=== PATIENT | male | born 1965 | race Caucasian/White ===

== ENCOUNTER 2019-05-19 09:45 | Outpatient (CLI) | payer BC, SELFPAY ==
[2019-05-19 10:14] LABS: Basophils Absolute Auto 0.1 K/mm3 (0.0-0.1); Basophils Percent Auto 1.1 % (0.2-1.2); Eosinophils Absolute Auto 0.1 K/mm3 (0-0.3); Eosinophils Percent Auto 1.6 % (0-4.4); Hematocrit 46.2 % (42.0-52.0); Hemoglobin 15.3 g/dL (14.0-18.0); Immature Granulocyte Absolute 0.08 K/mm3 (0.00-0.031); Lymphocytes Absolute Auto 2.06 K/mm3 (0.9-3.2); Lymphocytes Percent Auto 25.1 % (18.3-44.2); Mean Corpuscular HGB Conc 33.1 g/dl (32-36); Mean Corpuscular Volume 90.6 fl (80-100); Mean Platelet Volume 9.9 fl (7.4-10.4); Monocytes Absolute Auto 0.6 K/mm3 (0.1-0.6); Monocytes Percent Auto 7.3 % (2.6-8.5); Neutrophils Absolute Auto 5.3 K/mm3 (1.3-6.7); Neutrophils Percent Auto 63.9 % (45.5-73.1); Platelet Count Result 265 k/mm3 (150-375); Red Cell Distribution Width 12.7 % (11.5-14.5); White Blood Count 8.2 K/mm3 (4.5-10.0)
[2019-05-19 10:28] LABS: Alanine Aminotransferase 16 U/L (4-50); Albumin Level 4.4 g/dL (3.5-5.1); Alkaline Phosphatase 52 U/L (38-126); Aspartate Amino Transferase 18 U/L (17-59); Bilirubin,Total 0.6 mg/dL (0.2-1.3); Blood Urea Nitrogen 13 mg/dL (9-20); Calcium 9.1 mg/dL (8.4-10.2); Carbon Dioxide 27 mmol/L (22-30); Chloride 100 mmol/L (98-107); Cholesterol 207 mg/dL (0-200); Estimated Glomerular Filt Rate > 60; Glucose 104 mg/dL (75-110); HDL Direct 54 mg/dL; Potassium 4.2 mmol/L (3.4-5.0); Sodium 139 mmol/L (137-145); Triglycerides 122 mg/dL (<150)
[2019-05-19 10:39] LABS: LDL Cholesterol Direct 135 mg/dL
[2019-05-19 10:56] LABS: Thyroid Stimulating Hormone 0.093 uIU/mL (0.465-4.680)
[2019-05-19 13:40] LABS: Prostate Specific Antigen 14.5 ng/mL (< OR = 4.0)
== END 2019-05-19 09:46 | disposition home or self-care (01) ==
PROVIDERS: PCP Family Medicine; Visit Provider Family Medicine
DX: Z00.00 Encounter for general adult medical examination without abnormal findings (principal); Z12.5 Encounter for screening for malignant neoplasm of prostate; E78.5 Hyperlipidemia, unspecified; I10 Essential (primary) hypertension
CPT/HCPCS: 36415; 80053; 80061; 84153; 84443; 85025

== ENCOUNTER 2019-08-03 07:47 | Outpatient (CLI) | payer BC, SELFPAY ==
--- NOTE | ~2019-08-03 | CT_ITS ---
EXAMINATION: CT abdomen pelvis w con DATE: 08/03/2019 08:48 INDICATION: Prostate cancer TECHNIQUE: Computed tomography (CT) of the abdomen and pelvis was performed with 100 cc Omnipaque 350 intravenous contrast. Automated exposure control and iterative reconstruction technique were employe d. Exam dose: 388.56 mGy-cm total exam DLP. COMPARISON: None. FINDINGS: The lung bases are clear. Normal heart size. No pericardial or pleural effusion. The liver, gallbladder, bile ducts, spleen, pancreas and pancreatic duct are unremarkable. Normal mor phology of the adrenal glands. No suspicious renal mass lesion, urinary tract calculus or hydroureter onephrosis. Diverticulosis of the left colon. No CT evidence of diverticulitis. No CT evidence of diverticulitis. No bowel obstruction or intraperitoneal free air. There is patchy mild fat stranding within the mesentery and some nonspecific shotty mesenteric lymph nodes which may represent mesenteric adenitis. Normal caliber and mild atherosclerotic calcification of the abdominal aorta. Moderate prostate enlargement and calcifications. Small fat-containing left inguinal hernia. Degenerative changes of the lower thoracic and to a lesser extent lumbar spine. No suspicious osteobl astic or osteolytic lesions are identified. IMPRESSION: Moderate prostate enlargement and calcifications; no evidence of prostate metastasis Diverticulosis of the left colon Possible mesenteric adenitis Reviewed, dictated and finalized at [facility]. Reviewed, dictated and finalized at location A. IMPRESSION: Moderate prostate enlargement and calcifications; no evidence of p rostate metastasis Diverticulosis of the left colon Possible mesenteric adenitis
--- NOTE | ~2019-08-03 | NM_ITS ---
EXAMINATION: NM bone scan whole body EXAM DATE: 08/03/2019 12:05 INDICATION: Prostate cancer. TECHNIQUE: Bone scan was performed after injection of 26.8 mCi technetium 99 HDP and planar whole bod y images were obtained. COMPARISON: CT scan 08/03/2019 FINDINGS: There are no focal regions of increased uptake, or photopenic regions. There is mild upper thoracic dextroscoliosis, lower thoracic levoscoliosis, lumbar dextroscoliosis. Physiologic renal ac tivity. IMPRESSION: 1. No evidence of osseous metastatic disease. 2. Mild thoracolumbar scoliosis. Reviewed, dictated and finalized at location A.
[2019-08-03 08:37] LABS: Estimated Glomerular Filt Rate > 60
== END 2019-08-03 07:48 | disposition home or self-care (01) ==
PROVIDERS: PCP Family Medicine; Visit Provider Urology
DX: C61 Malignant neoplasm of prostate (principal); K57.30 Diverticulosis of large intestine without perforation or abscess without bleeding; M41.85 Other forms of scoliosis, thoracolumbar region
CPT/HCPCS: 36415; 74177; 78306; A9561; Q9967

== ENCOUNTER 2019-08-27 07:51 | Outpatient (CLI) | payer BC, SELFPAY ==
--- NOTE | 2019-08-27 08:45 | ECG_ITS ---
Measurements Intervals [place] Rate: 75 P: 45 PA: 158 QRS: 5 QRSD: 71 T: 29 QT: 348 QTc: 390 Interpretive Statements SINUS RHYTHM EARLY PRECORDIAL R/S TRANSITION BASELINE ARTIFACT- I, III, AVL, AVF BORDERLINE ECG Electronically Signed On 08-27-2019 9:01:12 CDT by Panda Herrera D.O.
[2019-08-27 09:09] LABS: Basophils Absolute Auto 0.1 K/mm3 (0.0-0.1); Basophils Percent Auto 0.8 % (0.2-1.2); Eosinophils Absolute Auto 0.1 K/mm3 (0-0.3); Eosinophils Percent Auto 1.3 % (0-4.4); Hematocrit 45.7 % (42.0-52.0); Hemoglobin 15.8 g/dL (14.0-18.0); Immature Granulocyte Absolute 0.06 K/mm3 (0.00-0.031); Immature Granulocyte Percent A 0.7 % (0-0.5); Lymphocytes Absolute Auto 2.46 K/mm3 (0.9-3.2); Lymphocytes Percent Auto 26.8 % (18.3-44.2); Mean Corpuscular HGB Conc 34.6 g/dl (32-36); Mean Corpuscular Hemoglobin 30.6 pg (26-34); Mean Corpuscular Volume 88.4 fl (80-100); Mean Platelet Volume 9.7 fl (7.4-10.4); Monocytes Absolute Auto 0.8 K/mm3 (0.1-0.6); Monocytes Percent Auto 8.4 % (2.6-8.5); Neutrophils Absolute Auto 5.7 K/mm3 (1.3-6.7); Platelet Count Result 269 k/mm3 (150-375); Red Blood Count 5.17 M/mm3 (4.6-6.20); Red Cell Distribution Width 12.2 % (11.5-14.5); White Blood Count 9.2 K/mm3 (4.5-10.0)
[2019-08-27 09:18] LABS: INR 1.1; Prothrombin Time 13.5 Seconds (11.1-14.7)
[2019-08-27 09:19] LABS: Partial Thromboplastin Time 27.9 SECONDS (22.3-36.8)
[2019-08-27 09:23] LABS: Alanine Aminotransferase 18 U/L (4-50); Albumin Level 4.8 g/dL (3.5-5.1); Alkaline Phosphatase 64 U/L (38-126); Aspartate Amino Transferase 21 U/L (17-59); Bilirubin,Total 0.7 mg/dL (0.2-1.3); Blood Urea Nitrogen 11 mg/dL (9-20); Calcium 9.4 mg/dL (8.4-10.2); Carbon Dioxide 27 mmol/L (22-30); Chloride 102 mmol/L (98-107); Estimated Glomerular Filt Rate > 60; Glucose 96 mg/dL (75-110); Potassium 4.1 mmol/L (3.4-5.0); Sodium 137 mmol/L (137-145)
== END 2019-08-27 07:52 | disposition home or self-care (01) ==
LOC: ANHSURGERY 07:54
PROVIDERS: PCP Family Medicine; Visit Provider Urology
DX: Z01.818 Encounter for other preprocedural examination (principal); C61 Malignant neoplasm of prostate; I10 Essential (primary) hypertension
CPT/HCPCS: 36415; 80053; 85025; 85610; 85730; 86850; 86900; 86901; 87086; 93005

== ENCOUNTER 2019-09-05 00:09 | Outpatient (CLI) | payer BC, SELFPAY ==
[2019-09-05 18:00] LABS: SARS-CoV-2 RNA PCR Negative
== END 2019-09-05 00:10 | disposition home or self-care (01) ==
LOC: ANHCOVIDDT 00:09
PROVIDERS: PCP Family Medicine; Visit Provider Urology
DX: Z01.818 Encounter for other preprocedural examination (principal); Z11.59 Encounter for screening for other viral diseases
CPT/HCPCS: 87635; C9803; U0003

== ENCOUNTER 2019-09-08 00:50 | Day surgery (SDC) | payer BC, SELFPAY ==
[2019-08-27 08:02] VITALS: BMI 24.5
[2019-08-27 08:45] VITALS: BP 130/88; PULSE 83; RESP 18; TEMP 36.9; O2SAT 98
[2019-09-08] VITALS (9 sets, daily range): BP systolic 101–120; BP diastolic 48–79; PULSE 75–100; RESP 13–20; TEMP 36.3–37.2; O2SAT 95–100; BMI 25.4
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
[2019-09-08] MEDS: LACTATED RINGERS 1,000 ML 30 ML IV CONT (06:48)
--- NOTE | 2019-09-08 07:08 | WPDHPUPDATE1 ---
History and Physical Update Update Date/Time: 09/08/19 07:08 History and Physical has been reviewed, including an updated exam of the patient. There are NO changes in the patient's condition. Risks, benefits, and alternatives have been discussed and questions answered. Patient agrees to proceed with procedure. Proceed with robotic assist nerve sparing prostatectomy with possible bilateral pelvic lymph node dissection.
[2019-09-08] MEDS: ceFAZolin 2 GM/D5W 50 ML 2 GM/50 ML BAG IVPB (07:22)
--- NOTE | 2019-09-08 10:34 | SUR.OPER ---
1033-20fr silicone catheter removed by selina Lees. 18 fr 10ml balloon Humphrey catheter inserted by Selina Lees.
--- NOTE | 2019-09-08 11:00 | P.OP_ITS ---
Procedure Note - Detailed Date of procedure: 09/08/19 Pre-op diagnosis: prostate CA Post-op diagnosis: same Procedure performed: Robotic assisted nerve-sparing prostatectomy with right pelvic lymph node dissection Description of procedure: Patient was taken to the operative suite and correctly identified. Once general anesthesia was obtained he was placed in low lying dorsal lithotomy and prepped and draped usual sterile fashion. Eighteen [place] Humphrey with 10 cc in the was placed. All the supraumbilical incision was then made. This carried down to the rectus fascia. Veress needle was inserted and the abdomen was insufflated to 15 mm Hg pressure. We then placed our camera port and under direct vision. We then placed the working ports in the appropriate locations. Patient was then placed in a deep Trendelenburg position and the robot was docked. Patient has significant amount of adhesions from his prior appendectomy and hernia repair. We took extra time 15 minutes to the to an adhesiolysis and free this area up from the pelvis. We then did a posterior approach in the standard fashion. The seminal vesicles were dissected out in their entirety. The vas is were transected. The plane between the prostate and rectum was developed. Then took down the bladder in the standard fashion. Space of Retzius was developed. Puboprostatic ligaments were taken down. Superficial vein was then fulgurated. Anterior bladder neck was then transected to expose the Humphrey catheter. Bladder neck sparing procedure was under taken. Posterior bladder neck was transected. The prior dissected seminal vesicles and vas were seen after opening up [place]. Nerve-sparing was then undertaken in a standard fashion. We took a wider margin on the right side where he was positive. Dorsal venous complex was transected. Urethra was also transected. We then performed a right pelvic lymph node dissection with the boundaries being the external iliac vein obturator nerve a Arthur's ligament and the bifurcation of the vessels proximally. Clips were placed on the lymph node packet. The specimen along with the lymph node packet was then placed in an Endo-Catch bag. [place] was then reapproximated using 0 Vicryl. The bladder neck was then anastomosed to the urethral stump using V lock suture in a running fashion. There was good mucosa to mucosa approximation. Eighteen [place] Humphrey with 10 cc was then placed in bladder. 150 cc of sterile saline was injected and there was no evidence of extravasation. Huang drain was then placed in the 3rd port site. This was secured. All lap counts needle count sponge counts were correct. The robot was undocked. The specimen was brought out through the midline incision. Rectus fascia was closed using 0 Vicryl in a running fashion. Subcuticular stitches were then placed. Patient tolerated procedure well without any complications taken recovery room stable condition. Anesthesia: GETA Surgeon: Sampson Hernandez MD Estimated blood loss (mL): 200 Drains: Yes Packing: No Pathology: yes Complications: No immediate complications Condition: stable Disposition: PACU
--- NOTE | 2019-09-08 12:12 | SUR.PHASEI ---
carmine emptied 25 ml. vivas emptied 45ml bloody urine. more relaxed after dose of pain medicine.
[2019-09-08] MEDS: LACTATED RINGERS 1,000 ML 125 ML IV CONT ×2 (14:40→20:35)
[2019-09-08] MEDS: MORPHINE SULFATE 2 MG/ML INJ 1 MG IV PUSH (14:40)
[2019-09-08] MEDS: HYOSCYAMINE SULFATE 0.125 MG TABLET SUBLINGUAL ×2 (16:56→21:32)
--- NOTE | 2019-09-08 18:38 | ADMGEN ---
This patient, Mike Pitts, was admitted to 3 Med Surg Room 323-01. Patient/family oriented to hospital policies and general routines including ID bracelet, bed and alarms, visiting hours, pain management, procedures, bathroom and other care routines, personal items, smoking policy, room service/diet, and visiting hours. Valuables list has been completed. Information on how to activate the Rapid Response Team has been discussed. Patient/Family are encouraged to report perceived risks to care and to ask questions if they do not understand what they are told or what they should do.
[2019-09-08] MEDS: DOCUSATE SODIUM 100 MG CAPSULE PO (20:29)
[2019-09-09] VITALS: BP 132/73; PULSE 119; RESP 18; TEMP 37; O2SAT 98
[2019-09-09 04:00] VITALS: BP 117/73; PULSE 96; RESP 18; TEMP 36.9; O2SAT 97
[2019-09-09] MEDS: LACTATED RINGERS 1,000 ML 125 ML IV CONT (04:55)
[2019-09-09] MEDS: HYOSCYAMINE SULFATE 0.125 MG TABLET SUBLINGUAL (05:31)
[2019-09-09 05:44] LABS: Hematocrit 37.3 % (42.0-52.0); Hemoglobin 12.4 g/dL (14.0-18.0)
[2019-09-09 05:57] LABS: Blood Urea Nitrogen 9 mg/dL (9-20); Calcium 8.2 mg/dL (8.4-10.2); Carbon Dioxide 28 mmol/L (22-30); Chloride 100 mmol/L (98-107); Estimated CRCL calculation 109 ml/min; Estimated Glomerular Filt Rate > 60; Glucose 101 mg/dL (75-110); Sodium 131 mmol/L (137-145)
[2019-09-09] MEDS: DOCUSATE SODIUM 100 MG CAPSULE PO (08:00)
--- NOTE | 2019-09-09 10:17 | WPDUROPN2 ---
Progress Note: A&P Assessment and Plan (1) Prostate cancer: Code(s): C61 - Malignant neoplasm of prostate Status: Acute Assessment and Plan: Patient will go home today with the vivas, ok to remove MOR drain. He will follow up next week for Cystogram, then to remove vivas in the office pending cystogram results. Subjective Subjective Date/Time Seen: 09/09/19 10:17 POD #1 Robotic Assisted Nerve Sparing Prostatectomy with Right Pelvic Lymph Node Dissection Patient doing very well today, minimal pain at incision sites only, very minimal MOR output. Afebrile, otherwise stable. Review of Systems Cardiovascular: Cardiovascular: Denies chest pain Respiratory: Respiratory: Reports no additional respiratory complaints Gastrointestinal: Gastrointestinal: Reports abdominal pain, Denies nausea and Denies vomiting Genitourinary: Genitourinary: Denies hematuria Exam Resp: Effort & Inspection: normal respiratory effort Cardio: Rate: regular rate GI: GI Palp: Yes Tenderness to palpation present (GI) (at incision sites only,incisions are well approximated, no drainage present) : General: No CVA tenderness Meatus: meatus normal and Blood at meatus present Urinary Catheter: Urinary Catheter: patent and draining and urine clear Objective Data Vital Signs Vital Signs: Vital Signs - 24 hr 09/08/19 11:16 09/08/19 11:40 09/08/19 11:57 Temperature 97.4 F L Pulse Rate 75 96 88 Respiratory Rate 15 13 17 Blood Pressure 101/63 109/60 109/60 Pulse Oximetry 100 100 100 09/08/19 12:05 09/08/19 12:27 09/08/19 12:35 Temperature 97.4 F L Pulse Rate 88 85 81 Respiratory Rate 16 16 20 Blood Pressure 110/62 101/48 L 107/75 Pulse Oximetry 98 98 97 09/08/19 14:20 09/08/19 22:00 09/09/19 00:00 Temperature 98.3 F 98.9 F 98.6 F Pulse Rate 92 100 119 H Respiratory Rate 18 18 18 Blood Pressure 110/75 117/75 132/73 Pulse Oximetry 95 97 98 09/09/19 04:00 Temperature 98.4 F Pulse Rate 96 Respiratory Rate 18 Blood Pressure 117/73 Pulse Oximetry 97 Intake/Output Intake/Output: Intake & Output 09/06/19 09/07/19 09/08/19 09/09/19 23:59 23:59 23:59 23:59 Intake Total 2019 1799 Output Total 825 732 Balance 1195 1068 Meds/Results Medications: Active Medications Generic Name Dose Route Start Last Admin Trade Name Freq PRN Reason Stop Dose Admin Hydrocodone Bitart/Acetaminophen 1 tab 09/08/19 12:35 [place] 5-325 Mg PO Q6H PRN Pain Rated 1-3 Hydrocodone Bitart/Acetaminophen 2 tab 09/08/19 12:35 09/08/19 23:09 [place] 5-325 Mg PO 2 tab Q6H PRN Administration Pain Rated 4-6 Docusate Sodium 100 mg 09/08/19 17:00 09/09/19 08:00 Colace Capsule PO 100 mg BID MATTEHW Administration Fentanyl Citrate 25 mcg 09/08/19 06:45 09/08/19 11:51 Sublimaze IV PUSH 25 mcg Q2M PRN Administration Pain Hydromorphone HCl 0.25 mg 09/08/19 06:45 Dilaudid Inj IV PUSH Q5M PRN Pain Hyoscyamine 0.125 mg 09/08/19 12:35 09/09/19 05:31 Levsin Tablet SUBLINGUAL 0.125 mg Q4H PRN Administration Bladder Spasm Lactated Ringer's 1,000 mls @ 30 mls/hr 09/07/19 16:40 09/08/19 12:34 Lr - Lactated Ringers Iv IV CONT 30 mls/hr .Q24H MATTHEW Infusion Lactated Ringer's 1,000 mls @ 30 mls/hr 09/08/19 06:45 Lr - Lactated Ringers Iv IV CONT .Q24H MATTHEW Lactated Ringer's 1,000 mls @ 125 mls/hr 09/08/19 12:35 09/09/19 04:55 Lr - Lactated Ringers Iv IV CONT 125 mls/hr .Q8H MATTHEW Administration Ketorolac Tromethamine 30 mg 09/08/19 12:35 Toradol Inj IV PUSH 09/09/19 12:36 Q6H PRN Pain Rated 4-6 Levofloxacin 500 mg 09/09/19 09:00 09/09/19 08:00 Levaquin Tab PO 500 mg DAILY MATTHEW Administration Morphine Sulfate 1 mg 09/08/19 12:35 09/08/19 14:40 Morphine Sulfate Inj IV PUSH 1 mg Q2H PRN Administration Pain Rated 7-10 Naloxone HCl 0.1 mg 09/08/19 12:35 Narcan IV PUSH Q2
--- NOTE | 2019-09-10 14:48 | DS_ITS ---
DATE OF DISCHARGE: 09/09/2019 The patient underwent a robotic assisted nerve-sparing prostatectomy with right pelvic lymph node dissection per Dr. Sampson Hernandez on September 08, 2019. PREOPERATIVE DIAGNOSIS: Prostate cancer. POSTOPERATIVE DIAGNOSIS: Prostate cancer. The patient tolerated procedure well, was then transferred to recovery in stable condition and to the floor for further observation. The patient was discharged home on September 09, 2019. ACTIVITY: No straining. DIET: As tolerated. Incisions open to air. The patient was to go home with Humphrey and will have it removed after his cystogram next week on September 16. The patient will then come up to the office for removal following cystogram. The patient will continue atorvastatin and lisinopril, and then in addition will be taking hydrocodone-acetaminophen for pain and Keflex to prevent postop infection. D I MT: Leobardo
== END 2019-09-09 14:12 | disposition home or self-care (01) | DRG 708 ==
LOC: ANHSURGERY 06:12 → ANH3MEDSUR 19:47
PROVIDERS: PCP Family Medicine; Visit Provider Urology
PROC: 0VT04ZZ Resection of Prostate, Percutaneous Endoscopic Approach (ICD-10-PCS; CPT 55867; principal; 2019-09-08 07:30)
DX: C61 Malignant neoplasm of prostate (principal); I10 Essential (primary) hypertension; E78.00 Pure hypercholesterolemia, unspecified; F17.220 Nicotine dependence, chewing tobacco, uncomplicated
CPT/HCPCS: 55866; 38571; S2900; 36415; 80048; 85014; 85018; 88307; 88309; A9270; J0690; J1100; J1170; J2250; J2270; J2370; J2405; J2704; J2710; J3010; J7030; J7120; Q9968

== ENCOUNTER 2019-09-17 10:45 | Outpatient (CLI) | payer BC, SELFPAY ==
--- NOTE | ~2019-09-17 | XR_ITS ---
EXAMINATION: CYSTOGRAM DATE: 09/17/2019 11:17 INDICATION: Prostate cancer follow-up TECHNIQUE: Initial collections representative radiograph of the pelvis was performed. There was retrograde administration of 100 cc Omnipaque 350 mixed with saline contrast into patient's existing vivas catheter. Fluorosco pic images of the pelvis were obtained. A post-void image was also performed. 0.6 minutes of fluorosc opy. DAP is 7. FINDINGS: There is normal filling of the bladder lumen without evidence for extravasation. There is r ight vesicoureteral reflux. No filling defects or diverticula are identified. IMPRESSION: 1. Right vesicoureteral reflux. No evidence for bladder extravasation. Reviewed, dictated and finalized at location A.
== END 2019-09-17 10:46 | disposition home or self-care (01) ==
PROVIDERS: PCP Family Medicine; Visit Provider Urology
DX: C61 Malignant neoplasm of prostate (principal)
CPT/HCPCS: 51600; 74430; Q9967

== ENCOUNTER 2021-05-31 10:53 | Outpatient (CLI) | payer BC, SELFPAY ==
[2021-05-31 11:52] LABS: Basophils Absolute Auto 0.1 K/mm3 (0.0-0.1); Basophils Percent Auto 0.9 % (0.2-1.2); Eosinophils Absolute Auto 0.1 K/mm3 (0-0.3); Eosinophils Percent Auto 0.9 % (0-4.4); Hemoglobin 15.7 g/dL (14.0-18.0); Immature Granulocyte Absolute 0.13 K/mm3 (0.00-0.031); Immature Granulocyte Percent A 1.5 % (0-0.5); Lymphocytes Absolute Auto 2.43 K/mm3 (0.9-3.2); Lymphocytes Percent Auto 28.8 % (18.3-44.2); Mean Corpuscular HGB Conc 34.1 g/dl (32-36); Mean Corpuscular Volume 90.9 fl (80-100); Mean Platelet Volume 9.7 fl (7.4-10.4); Monocytes Absolute Auto 0.7 K/mm3 (0.1-0.6); Monocytes Percent Auto 8.2 % (2.6-8.5); Neutrophils Percent Auto 59.7 % (45.5-73.1); Platelet Count Result 246 k/mm3 (150-375); Red Blood Count 5.06 M/mm3 (4.6-6.20); Red Cell Distribution Width 12.4 % (11.5-14.5); White Blood Count 8.5 K/mm3 (4.5-10.0)
[2021-05-31 12:32] LABS: Alanine Aminotransferase 22 U/L (4-50); Albumin Level 4.6 g/dL (3.5-5.1); Alkaline Phosphatase 60 U/L (38-126); Anion Gap 7 mmol/L (8-16); Aspartate Amino Transferase 21 U/L (17-59); Bilirubin,Total 0.7 mg/dL (0.2-1.3); Blood Urea Nitrogen 13 mg/dL (9-20); Calcium 9.5 mg/dL (8.4-10.2); Carbon Dioxide 27 mmol/L (22-30); Chloride 101 mmol/L (98-107); Cholesterol 237 mg/dL (0-200); Estimated Glomerular Filt Rate > 60; Glucose 104 mg/dL (65-110); HDL Direct 59 mg/dL; Potassium 4.6 mmol/L (3.4-5.0); Sodium 135 mmol/L (137-145); Triglycerides 148 mg/dL (<150)
[2021-05-31 12:44] LABS: LDL Cholesterol Direct 144 mg/dL
[2021-05-31 12:45] LABS: Vitamin D 25 Hydroxy 19.9 ng/mL
[2021-05-31 12:59] LABS: Thyroid Stimulating Hormone Reflex 0.082 uIU/mL (0.465-4.68)
[2021-05-31 20:35] LABS: Free T4 Free Thyroxine Reflex 0.96 ng/dL (0.78-2.19)
[2021-05-31 21:16] LABS: Total Triiodothyronine (T3) 1.25 NG/ML (0.97-1.69)
== END 2021-05-31 10:54 | disposition home or self-care (01) ==
LOC: ANHLAB 10:54
PROVIDERS: PCP Family Medicine; Visit Provider Family Medicine
DX: Z00.00 Encounter for general adult medical examination without abnormal findings (principal); E78.5 Hyperlipidemia, unspecified; I10 Essential (primary) hypertension; E55.9 Vitamin D deficiency, unspecified
CPT/HCPCS: 36415; 80053; 80061; 82306; 84439; 84443; 84480; 85025

== ENCOUNTER 2023-01-12 11:05 | Outpatient (CLI) | payer BC, SELFPAY ==
[2023-01-12 11:27] LABS: Basophils Absolute Auto 0.1 K/mm3 (0.0-0.1); Basophils Percent Auto 0.8 % (0.2-1.2); Eosinophils Absolute Auto 0.1 K/mm3 (0-0.3); Eosinophils Percent Auto 0.8 % (0-4.4); Hematocrit 44.2 % (42.0-52.0); Immature Granulocyte Absolute 0.09 K/mm3 (0.00-0.031); Immature Granulocyte Percent A 1.2 % (0-0.5); Lymphocytes Absolute Auto 2.44 K/mm3 (0.9-3.2); Lymphocytes Percent Auto 31.3 % (18.3-44.2); Mean Corpuscular HGB Conc 33.9 g/dl (32-36); Mean Corpuscular Hemoglobin 30.8 pg (26-34); Mean Corpuscular Volume 90.8 fl (80-100); Mean Platelet Volume 9.4 fl (7.4-10.4); Monocytes Absolute Auto 0.7 K/mm3 (0.1-0.6); Monocytes Percent Auto 8.3 % (2.6-8.5); Neutrophils Absolute Auto 4.5 K/mm3 (1.3-6.7); Neutrophils Percent Auto 57.6 % (45.5-73.1); Platelet Count Result 247 k/mm3 (150-375); Red Blood Count 4.87 M/mm3 (4.6-6.20); Red Cell Distribution Width 12.6 % (11.5-14.5); White Blood Count 7.8 K/mm3 (4.5-10.0)
[2023-01-12 11:37] LABS: Alanine Aminotransferase 32 U/L (6-50); Albumin Level 4.5 g/dL (3.5-5.1); Alkaline Phosphatase 58 U/L (38-126); Anion Gap 6 mmol/L (8-16); Aspartate Amino Transferase 25 U/L (17-59); Bilirubin,Total 0.7 mg/dL (0.2-1.3); Blood Urea Nitrogen 11 mg/dL (9-20); Carbon Dioxide 26 mmol/L (22-30); Chloride 103 mmol/L (98-107); Cholesterol 216 mg/dL (0-200); Estimated Glomerular Filt Rate > 60; Glucose 97 mg/dL (65-110); HDL Direct 67 mg/dL; Potassium 4.2 mmol/L (3.4-5.0); Sodium 135 mmol/L (137-145); Triglycerides 77 mg/dL (<150)
[2023-01-12 11:48] LABS: LDL Cholesterol Direct 121 mg/dL
[2023-01-12 12:14] LABS: Vitamin D 25 Hydroxy 26.4 ng/mL
[2023-01-12 12:18] LABS: Hemoglobin A1C 5.4 % (<5.7)
[2023-01-12 12:28] LABS: Thyroid Stimulating Hormone Reflex 0.024 uIU/mL (0.465-4.68)
[2023-01-12 13:09] LABS: Free T4 Free Thyroxine Reflex 0.98 ng/dL (0.78-2.19)
== END 2023-01-12 11:06 | disposition home or self-care (01) ==
LOC: ANHLAB 11:07
PROVIDERS: PCP Family Medicine; Visit Provider Family Medicine
DX: Z00.00 Encounter for general adult medical examination without abnormal findings (principal); E05.90 Thyrotoxicosis, unspecified without thyrotoxic crisis or storm; E78.5 Hyperlipidemia, unspecified; E53.8 Deficiency of other specified B group vitamins; E55.9 Vitamin D deficiency, unspecified; R73.9 Hyperglycemia, unspecified; I10 Essential (primary) hypertension
CPT/HCPCS: 36415; 80053; 80061; 82306; 82607; 83036; 84439; 84443; 84480; 85025

== ENCOUNTER 2024-01-29 11:20 | Outpatient (CLI) | payer BC, SELFPAY ==
[2024-01-29 13:18] LABS: Alanine Aminotransferase 41 U/L (6-50); Albumin Level 4.9 g/dL (3.5-5.1); Alkaline Phosphatase 81 U/L (38-126); Anion Gap 11 mmol/L (4-12); Aspartate Amino Transferase 54 U/L (17-59); Bilirubin,Total 0.9 mg/dL (0.2-1.3); Blood Urea Nitrogen 13 mg/dL (9-20); Calcium 9.2 mg/dL (8.4-10.2); Carbon Dioxide 24 mmol/L (22-30); Chloride 101 mmol/L (98-107); Cholesterol 168 mg/dL (0-200); Estimated Glomerular Filt Rate > 60; Glucose 99 mg/dL (65-110); HDL Direct 48 mg/dL; Potassium 4.5 mmol/L (3.4-5.0); Sodium 136 mmol/L (137-145); Triglycerides 127 mg/dL (<150)
[2024-01-29 13:33] LABS: LDL Cholesterol Direct 91 mg/dL
[2024-01-29 13:51] LABS: Free T4 Free Thyroxine 1.08 ng/mL (0.78-2.19)
[2024-01-29 13:51] LABS: Prostate Specific Antigen < 0.1 ng/mL (< OR = 4.0); Thyroid Stimulating Hormone 0.074 uIU/mL (0.465-4.680)
[2024-01-29 14:09] LABS: Vitamin D 25 Hydroxy < 12.8 ng/mL
[2024-01-29 16:39] LABS: Basophils Absolute Auto 0.1 K/mm3 (0.0-0.1); Basophils Percent Auto 1.1 % (0.2-1.2); Eosinophils Absolute Auto 0.1 K/mm3 (0-0.3); Eosinophils Percent Auto 0.6 % (0-4.4); Hematocrit 48.7 % (42.0-52.0); Hemoglobin 15.9 g/dL (14.0-18.0); Immature Granulocyte Absolute 0.11 K/mm3 (0.00-0.031); Lymphocytes Absolute Auto 2.53 K/mm3 (0.9-3.2); Lymphocytes Percent Auto 22.8 % (18.3-44.2); Mean Corpuscular HGB Conc 32.6 g/dl (32-36); Mean Corpuscular Hemoglobin 29.9 pg (26-34); Mean Corpuscular Volume 91.5 fl (80-100); Mean Platelet Volume 10.4 fl (7.4-10.4); Monocytes Absolute Auto 0.9 K/mm3 (0.1-0.6); Monocytes Percent Auto 8.5 % (2.6-8.5); Neutrophils Absolute Auto 7.3 K/mm3 (1.3-6.7); Platelet Count Result 262 k/mm3 (150-375); Red Blood Count 5.32 M/mm3 (4.6-6.20); Red Cell Distribution Width 12.5 % (11.5-14.5); White Blood Count 11.1 K/mm3 (4.5-10.0)
== END 2024-01-29 11:21 | disposition home or self-care (01) ==
LOC: ANHGOSHLAB 11:22
PROVIDERS: PCP Family Medicine; Visit Provider Nurse Practitioner Family
DX: E55.9 Vitamin D deficiency, unspecified (principal); I10 Essential (primary) hypertension; E78.00 Pure hypercholesterolemia, unspecified; Z12.5 Encounter for screening for malignant neoplasm of prostate
CPT/HCPCS: 36415; 80053; 80061; 82306; 84153; 84439; 84443; 85025; G0103

== ENCOUNTER 2024-07-29 11:02 | Outpatient (CLI) | payer BC, SELFPAY ==
--- OUTSIDE RECORDS SUMMARY | 2024-07-29 12:58 | XMS_ITS | CONTINUITY OF CARE DOCUMENT ---
Author Name margareth margareth Address Unknown Organization [facility] Address [address] [place] [address] Phone [phone] Care Team Providers Care Particle Board Supervisor Name Role Phone Tigre GONZALES, Ashley Unavailable INSURANCE PROVIDERS Payer name Policy type / Coverage type Madill red alliance party [employer] [facility] [employer] insurance company [id number]
[2024-07-29 20:02] LABS: Basophils Absolute Auto 0.1 K/mm3 (0.0-0.1); Basophils Percent Auto 1.2 % (0.2-1.2); Eosinophils Absolute Auto 0.1 K/mm3 (0-0.3); Eosinophils Percent Auto 0.7 % (0-4.4); Hematocrit 48.1 % (42.0-52.0); Hemoglobin 15.6 g/dL (14.0-18.0); Immature Granulocyte Absolute 0.06 K/mm3 (0.00-0.031); Immature Granulocyte Percent A 0.7 % (0-0.5); Lymphocytes Absolute Auto 2.53 K/mm3 (0.9-3.2); Lymphocytes Percent Auto 30.5 % (18.3-44.2); Mean Corpuscular HGB Conc 32.4 g/dl (32-36); Mean Corpuscular Volume 92.5 fl (80-100); Mean Platelet Volume 10.2 fl (7.4-10.4); Monocytes Absolute Auto 0.7 K/mm3 (0.1-0.6); Monocytes Percent Auto 8.8 % (2.6-8.5); Neutrophils Absolute Auto 4.8 K/mm3 (1.3-6.7); Neutrophils Percent Auto 58.1 % (45.5-73.1); Platelet Count Result 292 k/mm3 (150-375); Red Cell Distribution Width 12.9 % (11.5-14.5); White Blood Count 8.3 K/mm3 (4.5-10.0)
[2024-07-29 21:07] LABS: Vitamin D 25 Hydroxy 21.2 ng/mL
[2024-07-29 21:20] LABS: Thyroid Stimulating Hormone Reflex 0.036 uIU/mL (0.465-4.68)
[2024-07-29 21:23] LABS: Alanine Aminotransferase 43 U/L (6-50); Albumin Level 4.8 g/dL (3.5-5.1); Alkaline Phosphatase 74 U/L (38-126); Anion Gap 11 mmol/L (4-12); Aspartate Amino Transferase 38 U/L (17-59); Bilirubin,Total 0.7 mg/dL (0.2-1.3); Blood Urea Nitrogen 13 mg/dL (9-20); Calcium 9.2 mg/dL (8.4-10.2); Carbon Dioxide 26 mmol/L (22-30); Chloride 100 mmol/L (98-107); Cholesterol 181 mg/dL (0-200); Estimated Glomerular Filt Rate > 60; Glucose 72 mg/dL (65-110); HDL Direct 44 mg/dL; Potassium 3.8 mmol/L (3.4-5.0); Sodium 137 mmol/L (137-145); Triglycerides 142 mg/dL (<150)
[2024-07-29 21:44] LABS: LDL Cholesterol Direct 98 mg/dL
[2024-07-29 21:47] LABS: Hemoglobin A1C 5.5 % (<5.7)
[2024-07-29 22:03] LABS: Free T4 Free Thyroxine Reflex 1.03 ng/dL (0.78-2.19)
[2024-07-29 22:45] LABS: Total Triiodothyronine (T3) 1.39 NG/ML (0.97-1.69)
== END 2024-07-29 11:03 | disposition home or self-care (01) ==
LOC: ANHGOSHLAB 11:03
PROVIDERS: PCP Family Medicine; Visit Provider Nurse Practitioner Family
DX: R73.01 Impaired fasting glucose (principal); I10 Essential (primary) hypertension; E78.5 Hyperlipidemia, unspecified; E55.9 Vitamin D deficiency, unspecified
CPT/HCPCS: 36415; 80053; 80061; 82306; 83036; 84439; 84443; 84480; 85025

== ENCOUNTER 2024-10-28 00:06 | Day surgery (SDC) | payer BC, SELFPAY ==
[2024-10-16 10:21] VITALS: BMI 27.2
[2024-10-28 11:09] VITALS: BP 129/98; PULSE 107; RESP 18; TEMP 36.8; O2SAT 97
[2024-10-28] MEDS: LACTATED RINGERS 1,000 ML 150 ML IV CONT (11:22)
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
--- NOTE | 2024-10-28 13:45 | SUR.PREOP ---
Dr. Marrufo running 45min behind schedule. Pt updated of delay.
[2024-10-28] MEDS: EPINEPHrine INJ 1 MG/10 ML SYRINGE XX (13:46)
--- NOTE | 2024-10-28 13:52 | S_PTH ---
PATIENT: Mike Pitts LOC: [facility] #:[id number] AGE/SX: 59/M ROOM: RE10/28/[address]: Orestes Marrufo MD : 1965 BED: DIS: 10/28/2024 SPEC #: [id number] RECD: 10/29/24 07:20 STATUS: GEO REQ #: [id number] LOLA: 10/28/24 13:[address]: Orestes Marrufo DEPT: [facility] Surgical RECD BY: Katiuska Reese ENTERED: 10/29/24 07:21 SP TYPE: Surgical OTHR DR: Vick Sewell MD Tissues: A - Colon Polypectomy Procedures: Hematoxylin and Eosin Stain Gross and Microscopic Level 4
[2024-10-28 13:55] VITALS: BP 125/81; PULSE 62; RESP 21; O2SAT 99
[2024-10-28 14:05] VITALS: BP 114/79; PULSE 87; RESP 19; O2SAT 96
[2024-10-28 14:15] VITALS: BP 123/87; PULSE 83; RESP 20; O2SAT 95
== END 2024-10-28 14:21 | disposition home or self-care (01) ==
PROVIDERS: PCP Family Medicine; Referring Provider Nurse Practitioner Family; Visit Provider Internal Medicine Gastroenterology
PROC: 0DJD8ZZ Inspection of Lower Intestinal Tract, Via Natural or Artificial Opening Endoscopic (ICD-10-PCS; CPT 45378; principal; 2024-10-28 12:30)
DX: Z12.11 Encounter for screening for malignant neoplasm of colon (principal); D12.5 Benign neoplasm of sigmoid colon; K64.8 Other hemorrhoids; K57.30 Diverticulosis of large intestine without perforation or abscess without bleeding; E55.9 Vitamin D deficiency, unspecified; E78.00 Pure hypercholesterolemia, unspecified; I10 Essential (primary) hypertension; F17.210 Nicotine dependence, cigarettes, uncomplicated; F17.290 Nicotine dependence, other tobacco product, uncomplicated; Z98.890 Other specified postprocedural states; Z85.46 Personal history of malignant neoplasm of prostate; Z80.0 Family history of malignant neoplasm of digestive organs
CPT/HCPCS: 45385; 88305; J0168; J2003; J2704; J7120